=== PATIENT | female | born 1950 | race Caucasian/White ===

== ENCOUNTER → 2016-06-10 | Outpatient (CLI) | payer MEDICARE, OTHER ==
--- NOTE | 2016-06-10 12:53 | US ---
EXAMINATION TYPE: US kidneys/renal and bladder DATE OF EXAM: 06/10/2016 12:25 PM COMPARISON: NONE CLINICAL HISTORY: R31.21 Hematuria. EXAM MEASUREMENTS: Right Kidney: 10.3 x 5.1x 5.6 cm Left Kidney: 10.1 x 5.8 x 5.3 cm Findings: Limited due to bowel gas, body habitus, and patient difficulty holding breath. Right Kidney: decreased corticomedullary differentiation, appears slightly echogenic in echotexture Left Kidney: decreased corticomedullary differentiation, appears slightly echogenic in echotexture Bladder: appears wnl Bilateral Jets seen: Yes There is no evidence for hydronephrosis at this point in time. No nephrolithiasis is seen. No vivian s are identified. The urinary bladder is anechoic. Bilateral ureteral jets are seen. IMPRESSION: Findings suggest chronic medical renal disease. Correlate clinically No nephrolithiasis or solid or cystic mass by ultrasound.
== END | disposition home or self-care (01) ==
LOC: RADUSWWP 11:53
PROVIDERS: ATTEND Urology
DX: R31.21 Asymptomatic microscopic hematuria (principal)
CPT/HCPCS: 76770